=== PATIENT | male | born 1950 | race Caucasian/White ===

== ENCOUNTER → 2017-04-09 | Outpatient (CLI) | payer MEDICARE, MEDICAID ==
[~2017-04-09] MED LIST: ACID1GRA2 PO; ALLO100T30 PO; AMLO10TA2 PO; AMLO5TAB4 PO; ASPI-496 PO; CARV12.543 PO; CARV3.1212 PO; DICY20TA3 PO; DOCU-30 PO; ERGO500017 PO; FERR325T20 PO; FERR325T63 PO; FURO-93 PO; GABA300C10 PO; HYDR-3341 PO; HYDR-3342 PO; HYDR-3343 PO; HYDR25TA6 PO; IRBE150T49 PO; ISOS20TA58 PO; LOSA50TA2 PO; MAGN400T26 PO; Magnesium Oxide PO; OMEP-110 PO; ONDA4TAB13 PO; OXYC10TA32 PO; OXYC5TAB3 PO; PHOS250T3 PO; POLY17PO3 PO; POTA20TA14 PO; PRED5TAB PO; SIMV20TA PO; TRAM50TA2 PO
== END | disposition home or self-care (01) ==
LOC: PETCFH 08:58
PROVIDERS: ATTEND Internal Medicine
DX: C78.7 Secondary malignant neoplasm of liver and intrahepatic bile duct (principal); E04.1 Nontoxic single thyroid nodule
CPT/HCPCS: 78815; A9552

== ENCOUNTER 2017-05-19 14:12 | Inpatient (IN) | payer MEDICARE, MEDICAID ==
[~2017-05-19] VITALS: Ht 177.8 cm; Wt 85.7 kg
[~2017-05-19 14:12] MED LIST changes: +MAGN400T7 PO
[2017-05-19] MEDS ORDERED: ONDANSETRON 2MG/ML, 2ML IVPush ONE (15:00)
[2017-05-19] MEDS ORDERED: SODIUM CHLORIDE FLUSH 10ML SYR IVF ONE (15:00)
[2017-05-19] MEDS ORDERED: SODIUM CHLORIDE 0.9% 1,000ML IVBOLUS ONE (15:00)
[2017-05-19] MEDS ORDERED: PLEASE ENTER HEIGHT AND WEIGHT MC SCH (15:00)
[2017-05-19] MEDS: MORPHINE SULFATE 4 MG/ML, 1ML IVPush PRN ×2 (15:01→18:39)
[2017-05-19 15:05] LABS: ASPARTATE AMINO TRANSFERASE 47 U/L (15-37); BLOOD UREA NITROGEN 33 mg/dL (7-18)
[2017-05-19] MEDS ORDERED: ONDANSETRON 2MG/ML, 2ML IVPush PRN ×2 (15:30→20:00)
[2017-05-19] MEDS ORDERED: DIPHENHYDRAMINE 50 MG/ML, 1ML ONE (16:41)
[2017-05-19] MEDS ORDERED: METOCLOPRAMIDE 5 MG/ML, 2ML ONE (16:41)
[2017-05-19] MEDS ORDERED: DIPHENHYDRAMINE 50 MG/ML, 1ML IVPush ONE (17:00)
[2017-05-19] MEDS ORDERED: METOCLOPRAMIDE 5 MG/ML, 2ML IVPush ONE (17:00)
[2017-05-19] MEDS ORDERED: MORPHINE SULFATE 4 MG/ML, 1ML ONE (18:36)
[2017-05-19] MEDS ORDERED: MAALOX/HYOSCYAMINE/LIDOCAINE 45 ML BOTTLE ONE (19:11)
[2017-05-19] MEDS ORDERED: MAALOX/HYOSCYAMINE/LIDOCAINE 45 ML BOTTLE PO ONE (19:30)
[2017-05-19] MEDS ORDERED: SODIUM CHLORIDE FLUSH 10ML SYR IVF PRN (19:30)
[2017-05-19 20:00] VITALS: BP 158/93
[2017-05-19] MEDS ORDERED: ERGOCALCIFEROL 50,000 UNIT CAPSULE PO SCH (20:00)
[2017-05-19] MEDS ORDERED: ACETAMINOPHEN 325 MG TABLET PO PRN (20:00)
[2017-05-19] MEDS ORDERED: BISACODYL 10 MG SUPP PR PRN (20:00)
[2017-05-19] MEDS: SODIUM CHLORIDE 0.9% 1,000 ML IV SCH (20:17)
[2017-05-19] MEDS ORDERED: FUROSEMIDE 20 MG TABLET PO SCH (21:00)
[2017-05-19] MEDS ORDERED: FERROUS SULFATE 325 MG TABLET PO SCH (21:00)
[2017-05-19] MEDS: morphine SULFATE 10 MG/ML, 1ML IVPush PRN (23:03)
[2017-05-19] MEDS: MAGNESIUM OXIDE 400 MG TABLET PO SCH (23:03)
[2017-05-19] MEDS: ISOSORBIDE DINITRATE 20 MG TABLET PO SCH (23:04)
[2017-05-19] MEDS: DICYCLOMINE 20 MG TABLET PO SCH (23:04)
[2017-05-19] MEDS: HEPARIN 5,000 UNITS/ML, 1ML SQ SCH (23:05)
[2017-05-20 02:49] VITALS: BP 134/81
[2017-05-20] MEDS: SODIUM CHLORIDE 0.9% 1,000 ML IV SCH (05:31)
[2017-05-20] MEDS: morphine SULFATE 10 MG/ML, 1ML IVPush PRN (05:31)
[2017-05-20 06:06] LABS: ASPARTATE AMINO TRANSFERASE 40 U/L (15-37); BLOOD UREA NITROGEN 34 mg/dL (7-18)
[2017-05-20] MEDS: DICYCLOMINE 20 MG TABLET PO SCH ×4 (06:13→21:00)
[2017-05-20 07:32] VITALS: BP 130/85
[2017-05-20 07:52] LABS: ANISOCYTOSIS 1+; VERIFY COUNTS? YES
[2017-05-20 07:53] LABS: DIFF TOTAL CELLS COUNTED 50 CELL DIFFERENTIAL
[2017-05-20] MEDS: DOCUSATE 100 MG CAPSULE PO SCH ×2 (09:00→21:00)
[2017-05-20] MEDS ORDERED: POTASSIUM CHLORIDE 20 MEQ TAB.ER.PRT PO SCH (09:00)
[2017-05-20] MEDS ORDERED: TBO-FILGRASTIM 480 MCG/0.8 ML SQ ONE (09:00)
[2017-05-20] MEDS: POTASSIUM CHLORIDE 10 MEQ in D5%-0.45% NACL 1,000 ML IV SCH ×2 (09:17→20:56)
[2017-05-20] MEDS: AMLODIPINE 5 MG TABLET PO SCH (09:18)
[2017-05-20] MEDS: MAGNESIUM OXIDE 400 MG TABLET PO SCH ×3 (09:18→21:00)
[2017-05-20] MEDS: HEPARIN 5,000 UNITS/ML, 1ML SQ SCH ×3 (09:18→23:00)
[2017-05-20] MEDS: SENNA/DOCUSATE TABLET PO SCH (09:19)
[2017-05-20] MEDS: ISOSORBIDE DINITRATE 20 MG TABLET PO SCH ×3 (09:20→21:00)
[2017-05-20] MEDS: HYDROmorphone 2 MG/ML, 1ML IVPush PRN ×6 (10:10→23:46)
[2017-05-20] MEDS: CEFTRIAXONE PMX 1GM/50ML 50 ML IV SCH ×2 (10:25→20:47)
[2017-05-20 15:00] VITALS: BP 107/73
[2017-05-20] MEDS ORDERED: hydrALAzine 20 MG/ML, 1ML IV PRN (18:00)
[2017-05-20 20:19] VITALS: BP 103/72
[2017-05-21 02:59] VITALS: BP 83/60
[2017-05-21] MEDS: HYDROmorphone 2 MG/ML, 1ML IVPush PRN ×2 (03:03→06:33)
[2017-05-21 03:16] VITALS: BP 72/54
[2017-05-21 04:00] VITALS: BP 93/63
[2017-05-21 04:43] VITALS: BP 85/61
[2017-05-21 05:31] VITALS: BP 92/64
[2017-05-21 05:54] LABS: BLOOD UREA NITROGEN 61 mg/dL (7-18)
[2017-05-21] MEDS: DICYCLOMINE 20 MG TABLET PO SCH ×4 (06:00→21:37)
[2017-05-21] MEDS: HEPARIN 5,000 UNITS/ML, 1ML SQ SCH ×2 (07:00→16:19)
[2017-05-21 07:22] VITALS: BP 85/61
[2017-05-21 07:27] LABS: VERIFY COUNTS? YES
[2017-05-21 07:28] LABS: ANISOCYTOSIS 1+; DIFF TOTAL CELLS COUNTED 200 CELL DIFF
[2017-05-21 07:29] LABS: LARGE PLATELETS 1+
[2017-05-21] MEDS: ISOSORBIDE DINITRATE 20 MG TABLET PO SCH (09:00)
[2017-05-21] MEDS: TBO-FILGRASTIM 480 MCG/0.8 ML SQ SCH (09:00)
[2017-05-21] MEDS: CEFTRIAXONE PMX 1GM/50ML 50 ML IV SCH (09:26)
[2017-05-21] MEDS: MAGNESIUM OXIDE 400 MG TABLET PO SCH ×3 (09:30→21:38)
[2017-05-21] MEDS: AMLODIPINE 5 MG TABLET PO SCH (09:30)
[2017-05-21] MEDS: DOCUSATE 100 MG CAPSULE PO SCH (09:30)
[2017-05-21] MEDS: SENNA/DOCUSATE TABLET PO SCH (09:31)
[2017-05-21] MEDS ORDERED: PROPOFOL 10 MG/ML, 20ML ONE (11:54)
[2017-05-21] MEDS ORDERED: GLYCOPYRROLATE 0.2MG/1ML ONE (11:54)
[2017-05-21] MEDS ORDERED: NEOSTIGMINE 1 MG/ML, 10ML ONE (11:54)
[2017-05-21] MEDS ORDERED: PHENYLEPHRINE 10 MG/ML ONE (11:54)
[2017-05-21] MEDS ORDERED: ROCURONIUM 10 MG/ML ONE (11:54)
[2017-05-21] MEDS ORDERED: ONDANSETRON 2MG/ML, 2ML ONE (11:54)
[2017-05-21] MEDS ORDERED: SUCCINYLCHOLINE 20 MG/ML, 10ML ONE (11:54)
[2017-05-21] MEDS ORDERED: FENTANYL PF 250 MCG/5ML ONE (11:55)
[2017-05-21] MEDS ORDERED: MIDAZOLAM 1 MG/ML, 2ML ONE (11:55)
[2017-05-21] MEDS ORDERED: FENTANYL PF 100 MCG/2ML IV PRN (13:00)
[2017-05-21] MEDS ORDERED: ONDANSETRON 2MG/ML, 2ML IVPush PRN (13:00)
[2017-05-21] MEDS ORDERED: LABETALOL 5MG/ML, 20ML IV PRN (13:00)
[2017-05-21] MEDS ORDERED: PROMETHAZINE 25 MG/ML, 1ML IV PRN (13:00)
[2017-05-21] MEDS ORDERED: OXYcodone 5 MG/5 ML ORAL.SOL UDC PO PRN (13:00)
[2017-05-21] MEDS ORDERED: ACETAMINOPHEN 325 MG TABLET PO PRN (13:00)
[2017-05-21] MEDS ORDERED: EPHEDRINE 50 MG/ML, 1ML IVPush PRN (13:00)
[2017-05-21] MEDS ORDERED: METOPROLOL 1 MG/ML, 5ML IV PRN (13:00)
[2017-05-21] MEDS ORDERED: hydrALAzine 20 MG/ML, 1ML IV PRN (13:00)
[2017-05-21] MEDS ORDERED: ALBUTEROL SULFATE 2.5 MG/3 ML NPPB PRN (13:00)
[2017-05-21] MEDS ORDERED: VANCOMYCIN PER PHARMACY MC PRN (15:00)
[2017-05-21] MEDS ORDERED: MEROPENEM 1 GM in SODIUM CHLORIDE 0.9% 50 ML IV SCH (15:30)
[2017-05-21] MEDS: SODIUM CHLORIDE 0.9% 1,000 ML IV SCH ×2 (15:46→22:15)
[2017-05-21] MEDS: MEROPENEM 1 GM in SODIUM CHLORIDE 0.9% 100 ML IV SCH (15:46)
[2017-05-21] MEDS ORDERED: PHARMACOKINETIC MONITORING MC PRN (16:00)
[2017-05-21] MEDS ORDERED: PHARMACOKINETIC CONSULTATION MC ONE (16:00)
[2017-05-21] MEDS ORDERED: VANCOMYCIN 1,500 MG in SODIUM CHLORIDE 0.9% 250 ML IV ONE (16:30)
[2017-05-21 17:20] LABS: POTASSIUM,URINE RANDOM 37 mmol/L
[2017-05-21] MEDS ORDERED: PROPOFOL 100 ML IV PRN (18:10)
[2017-05-21] MEDS ORDERED: LIDOCAINE-MPF 1%, 2ML ENDO PRN (18:30)
[2017-05-21] MEDS ORDERED: FENTANYL PF 100 MCG/2ML IVPush PRN (18:30)
[2017-05-21] MEDS ORDERED: PHARMACY MAY ADJ FOR RENAL FX MC SCH (18:30)
[2017-05-21] MEDS: ALBUTEROL/IPRATROPIUM 2.5MG/0.5MG, 3 ML INLINE SCH ×2 (18:50→23:00)
[2017-05-21] MEDS: FAMOTIDINE 20 MG/2 ML IV SCH (20:14)
[2017-05-21] MEDS: HYDROmorphone 1 MG/ML, 1ML IV PRN (20:14)
[2017-05-21] MEDS ORDERED: DOCUSATE 100 MG CAPSULE PO SCH (21:00)
[2017-05-21] MEDS ORDERED: DOCUSATE 50 MG/5 ML, 10ML UDC PO SCH (23:00)
[2017-05-21] MEDS: NOREPINEPHRINE 4 MG in SODIUM CHLORIDE 0.9% 246 ML IV PRN (23:30)
[2017-05-22] MEDS: HEPARIN 5,000 UNITS/ML, 1ML SQ SCH ×3 (00:40→16:00)
[2017-05-22] MEDS: ALBUTEROL/IPRATROPIUM 2.5MG/0.5MG, 3 ML INLINE SCH ×6 (01:50→22:10)
[2017-05-22] MEDS: HYDROmorphone 1 MG/ML, 1ML IV PRN (03:00)
[2017-05-22] MEDS: MEROPENEM 1 GM in SODIUM CHLORIDE 0.9% 100 ML IV SCH ×2 (04:16→17:48)
[2017-05-22 04:38] LABS: ABG COLLECTION SITE LEFT RADIAL; COLLATERAL CIRCULATION TESTING NORMAL
[2017-05-22 04:54] LABS: BLOOD UREA NITROGEN 96 mg/dL (7-18)
[2017-05-22 05:13] LABS: ASPARTATE AMINO TRANSFERASE 66 U/L (15-37); TOTAL IRON BINDING CAPACITY 139 mcg/dL (250-450)
[2017-05-22] MEDS: SODIUM CHLORIDE 0.9% 1,000 ML IV SCH ×3 (05:16→20:43)
[2017-05-22 05:41] LABS: DIFF TOTAL CELLS COUNTED 100 CELL DIFF
[2017-05-22 05:53] LABS: VERIFY COUNTS? YES
[2017-05-22 05:56] LABS: ANISOCYTOSIS 1+
[2017-05-22 05:57] LABS: GIANT PLATELETS 1+; LARGE PLATELETS 1+
[2017-05-22] MEDS: NOREPINEPHRINE 4 MG in SODIUM CHLORIDE 0.9% 246 ML IV PRN ×4 (06:33→21:33)
[2017-05-22] MEDS: DICYCLOMINE 20 MG TABLET PO SCH ×4 (06:33→21:00)
[2017-05-22] MEDS: SENNA/DOCUSATE TABLET PO SCH (10:01)
[2017-05-22] MEDS: DOCUSATE 50 MG/5 ML, 10ML UDC PO SCH ×2 (10:02→21:01)
[2017-05-22] MEDS: FAMOTIDINE 20 MG/2 ML IV SCH (10:02)
[2017-05-22 10:29] LABS: HIT LOT CART23835/KIT23844
[2017-05-22] MEDS: MICAFUNGIN 100 MG in SODIUM CHLORIDE 0.9% 100 ML IV SCH (11:01)
[2017-05-22] MEDS: TBO-FILGRASTIM 480 MCG/0.8 ML SQ SCH (11:04)
[2017-05-22] MEDS ORDERED: VASOPRESSIN 100 UNIT in SODIUM CHLORIDE 0.9% 495 ML IV PRN (11:30)
[2017-05-22 11:49] LABS: HIT OBC PASS; HIT RESULT NEGATIVE (NEGATIVE)
[2017-05-22] MEDS ORDERED: FENTANYL PF 100 MCG/2ML ONE ×2 (13:00)
[2017-05-22] MEDS ORDERED: MIDAZOLAM 1 MG/ML, 5ML ONE ×2 (13:00)
[2017-05-22] MEDS ORDERED: LIDOCAINE 2%, 20ML ONE (13:17)
[2017-05-22] MEDS ORDERED: VANCOMYCIN 1,700 MG in SODIUM CHLORIDE 0.9% 250 ML IV ONE (17:00)
[2017-05-22] MEDS: HYDROmorphone 2 MG/ML, 1ML IVPush PRN (22:38)
[2017-05-23] MEDS: HEPARIN 5,000 UNITS/ML, 1ML SQ SCH
[2017-05-23] MEDS: ALBUTEROL/IPRATROPIUM 2.5MG/0.5MG, 3 ML INLINE SCH ×6 (01:55→23:00)
[2017-05-23] MEDS: SODIUM CHLORIDE 0.9% 1,000 ML IV SCH ×3 (03:04→18:56)
[2017-05-23] MEDS: MEROPENEM 1 GM in SODIUM CHLORIDE 0.9% 100 ML IV SCH (04:09)
[2017-05-23 04:35] LABS: ABG COLLECTION SITE RIGHT RADIAL; COLLATERAL CIRCULATION TESTING NORMAL
[2017-05-23 04:49] LABS: ASPARTATE AMINO TRANSFERASE 58 U/L (15-37)
[2017-05-23 04:52] LABS: BLOOD UREA NITROGEN 113 mg/dL (7-18)
[2017-05-23 05:10] LABS: DIFF TOTAL CELLS COUNTED 10 CELL DIFF; VERIFY COUNTS? YES
[2017-05-23 05:11] LABS: LARGE PLATELETS 1+; MICROCYTOSIS 1+
[2017-05-23] MEDS: DICYCLOMINE 20 MG TABLET PO SCH ×4 (06:00→20:42)
[2017-05-23] MEDS: HYDROmorphone 2 MG/ML, 1ML IVPush PRN ×4 (06:20→20:51)
[2017-05-23] MEDS: DOCUSATE 50 MG/5 ML, 10ML UDC PO SCH ×2 (09:00→20:42)
[2017-05-23] MEDS: SENNA/DOCUSATE TABLET PO SCH (09:00)
[2017-05-23] MEDS ORDERED: FAMOTIDINE 20 MG/2 ML IV SCH (09:00)
[2017-05-23] MEDS: MICAFUNGIN 100 MG in SODIUM CHLORIDE 0.9% 100 ML IV SCH (09:07)
[2017-05-23] MEDS: NOREPINEPHRINE 4 MG in SODIUM CHLORIDE 0.9% 246 ML IV PRN ×2 (09:36→17:14)
[2017-05-23] MEDS ORDERED: ALBUMIN HUMAN 25% 100 ML IV ONE (10:30)
[2017-05-23] MEDS ORDERED: AMIODARONE 150 MG in DEXTROSE 5% 100 ML IV ONE (10:30)
[2017-05-23] MEDS ORDERED: ALBUMIN HUMAN 25% 100 ML IV PRN (10:30)
[2017-05-23] MEDS ORDERED: FILTER 0.22 MICRON IV SCH (11:00)
[2017-05-23] MEDS: AMIODARONE 900 MG in DEXTROSE 5% 482 ML IV PRN (11:08)
[2017-05-23] MEDS: TBO-FILGRASTIM 480 MCG/0.8 ML SQ SCH (11:19)
[2017-05-23] MEDS: ALBUMIN HUMAN 25% 100 ML IV PRN (11:50)
[2017-05-23 14:15] LABS: HEP B SURF. AB < 3.1 mIU/mL (0.0-10.0)
[2017-05-23] MEDS: MEROPENEM 500 MG in SODIUM CHLORIDE 0.9% 100 ML IV SCH (15:34)
[2017-05-23] MEDS ORDERED: FENTANYL PF 2,500 MCG in SODIUM CHLORIDE 0.9% 200 ML IV PRN (20:00)
[2017-05-23] MEDS ORDERED: hydrALAzine 20 MG/ML, 1ML IV PRN (21:58)
[2017-05-24] MEDS: FENTANYL PF 2,500 MCG in SODIUM CHLORIDE 0.9% 200 ML IV PRN (00:22)
[2017-05-24] MEDS: SODIUM CHLORIDE 0.9% 1,000 ML IV SCH ×2 (01:42→09:20)
[2017-05-24] MEDS: ALBUTEROL/IPRATROPIUM 2.5MG/0.5MG, 3 ML INLINE SCH ×4 (02:22→14:50)
[2017-05-24] MEDS: NOREPINEPHRINE 4 MG in SODIUM CHLORIDE 0.9% 246 ML IV PRN ×4 (02:28→22:56)
[2017-05-24] MEDS: MEROPENEM 500 MG in SODIUM CHLORIDE 0.9% 100 ML IV SCH ×2 (04:17→16:11)
[2017-05-24 04:55] LABS: ABG COLLECTION SITE RIGHT RADIAL; COLLATERAL CIRCULATION TESTING NORMAL
[2017-05-24 04:56] LABS: BLOOD UREA NITROGEN 74 mg/dL (7-18)
[2017-05-24 05:00] LABS: ASPARTATE AMINO TRANSFERASE 52 U/L (15-37)
[2017-05-24 05:52] LABS: DIFF TOTAL CELLS COUNTED 25 CELL DIFFERENTIAL
[2017-05-24 05:57] LABS: VERIFY COUNTS? YES
[2017-05-24 05:58] LABS: ANISOCYTOSIS 1+
[2017-05-24 05:59] LABS: LARGE PLATELETS 1+
[2017-05-24] MEDS: DICYCLOMINE 20 MG TABLET PO SCH ×4 (06:24→21:00)
[2017-05-24] MEDS: SENNA/DOCUSATE TABLET PO SCH (08:56)
[2017-05-24] MEDS: AMIODARONE 900 MG in DEXTROSE 5% 482 ML IV PRN (09:19)
[2017-05-24] MEDS: MICAFUNGIN 100 MG in SODIUM CHLORIDE 0.9% 100 ML IV SCH (09:20)
[2017-05-24] MEDS: PANTOPRAZOLE 40 MG IV IVPush SCH (09:20)
[2017-05-24] MEDS ORDERED: TPN PER PHARMACY MC SCH (10:00)
[2017-05-24] MEDS: TBO-FILGRASTIM 480 MCG/0.8 ML SQ SCH (11:20)
[2017-05-24] MEDS: ALBUMIN HUMAN 25% 100 ML IV PRN ×2 (11:45→12:45)
[2017-05-24] MEDS ORDERED: ALBUMIN HUMAN 25% 100 ML IV PRN (14:30)
[2017-05-24] MEDS ORDERED: SODIUM CHLORIDE 0.9% 1,000 ML IV SCH (15:00)
[2017-05-24] MEDS ORDERED: FILTER, DISP 1.2 MICRON FOR TPN/PVN IV PRN (17:00)
[2017-05-24] MEDS ORDERED: DEXTROSE 10% 500 ML IV PRN (17:00)
[2017-05-24] MEDS ORDERED: DEXTROSE 50%, 50ML SYRINGE IVPush PRN (17:00)
[2017-05-24] MEDS ORDERED: FAT EMULSIONS IV SCH (17:00)
[2017-05-24] MEDS ORDERED: [UNRECOGNIZED DRUG - OTHER] IV SCH (17:00)
[2017-05-24] MEDS ORDERED: DEXTROSE 70% IV SCH (17:00)
[2017-05-24] MEDS ORDERED: AMINO ACID 10% IV SCH (17:00)
[2017-05-24] MEDS ORDERED: VANCOMYCIN 1,500 MG in SODIUM CHLORIDE 0.9% 250 ML IV ONE (17:00)
[2017-05-24] MEDS ORDERED: FENTANYL PF 2,500 MCG in SODIUM CHLORIDE 0.9% 200 ML IV PRN (20:00)
[2017-05-24] MEDS: ALBUTEROL/IPRATROPIUM 2.5MG/0.5MG, 3 ML NPPB SCH (20:30)
[2017-05-24] MEDS: INSULIN REGULAR MEDIUM DOSE Q6H X 48HRS SQ-INSULIN SCH (21:15)
[2017-05-25] MEDS: INSULIN REGULAR MEDIUM DOSE Q6H X 48HRS SQ-INSULIN SCH ×4 (04:06→20:49)
[2017-05-25] MEDS: MEROPENEM 500 MG in SODIUM CHLORIDE 0.9% 100 ML IV SCH ×2 (04:08→16:00)
[2017-05-25 04:25] LABS: ABG COLLECTION SITE RIGHT RADIAL; COLLATERAL CIRCULATION TESTING NORMAL
[2017-05-25 04:47] LABS: ASPARTATE AMINO TRANSFERASE 51 U/L (15-37); BLOOD UREA NITROGEN 57 mg/dL (7-18)
[2017-05-25] MEDS: DICYCLOMINE 20 MG TABLET PO SCH (06:00)
[2017-05-25] MEDS: ALBUTEROL/IPRATROPIUM 2.5MG/0.5MG, 3 ML NPPB SCH ×4 (06:45→19:20)
[2017-05-25 07:54] VITALS: BP 89/58
[2017-05-25] MEDS: PANTOPRAZOLE 40 MG IV IVPush SCH (07:59)
[2017-05-25 08:07] LABS: DIFF TOTAL CELLS COUNTED 25 CELL DIFFERENTIAL
[2017-05-25 08:09] LABS: ANISOCYTOSIS 1+; VERIFY COUNTS? YES
[2017-05-25 08:11] VITALS: BP 107/59
[2017-05-25] MEDS: SENNA/DOCUSATE TABLET PO SCH (08:31)
[2017-05-25] MEDS: TBO-FILGRASTIM 480 MCG/0.8 ML SQ SCH (08:33)
[2017-05-25] MEDS: NOREPINEPHRINE 4 MG in SODIUM CHLORIDE 0.9% 246 ML IV PRN (08:33)
[2017-05-25 08:36] VITALS: BP 81/48
[2017-05-25] MEDS: MICAFUNGIN 100 MG in SODIUM CHLORIDE 0.9% 100 ML IV SCH (09:32)
[2017-05-25] MEDS: FENTANYL PF 2,500 MCG in SODIUM CHLORIDE 0.9% 200 ML IV PRN (11:57)
[2017-05-25] MEDS: AMIODARONE 900 MG in DEXTROSE 5% 482 ML IV PRN (11:58)
[2017-05-25] MEDS: NOREPINEPHRINE 8 MG in SODIUM CHLORIDE 0.9% 242 ML IV PRN ×2 (11:58→21:54)
[2017-05-25] MEDS ORDERED: [UNRECOGNIZED DRUG - OTHER] IV SCH (17:00)
[2017-05-25] MEDS ORDERED: DEXTROSE 70% IV SCH (17:00)
[2017-05-25] MEDS ORDERED: FAT EMULSIONS IV SCH (17:00)
[2017-05-25] MEDS ORDERED: AMINO ACID 10% IV SCH (17:00)
[2017-05-25] MEDS ORDERED: MEROPENEM 500 MG in SODIUM CHLORIDE 0.9% 50 ML IV SCH (21:18)
[2017-05-26] MEDS ORDERED: MEROPENEM 500 MG in SODIUM CHLORIDE 0.9% 50 ML IV SCH (04:00)
[2017-05-26] MEDS: INSULIN REGULAR MEDIUM DOSE Q6H X 48HRS SQ-INSULIN SCH ×2 (04:32→09:00)
[2017-05-26 04:47] LABS: ABG COLLECTION SITE RIGHT RADIAL; COLLATERAL CIRCULATION TESTING NORMAL
[2017-05-26 05:42] LABS: BLOOD UREA NITROGEN 86 mg/dL (7-18)
[2017-05-26] MEDS: ALBUTEROL/IPRATROPIUM 2.5MG/0.5MG, 3 ML NPPB SCH ×3 (07:11→13:52)
[2017-05-26 07:14] LABS: ANISOCYTOSIS 1+; DIFF TOTAL CELLS COUNTED BUFFY COAT DIFF; VERIFY COUNTS? YES
[2017-05-26] MEDS: TBO-FILGRASTIM 480 MCG/0.8 ML SQ SCH (08:50)
[2017-05-26] MEDS: MICAFUNGIN 100 MG in SODIUM CHLORIDE 0.9% 100 ML IV SCH (09:02)
[2017-05-26] MEDS: PANTOPRAZOLE 40 MG IV IVPush SCH (09:02)
[2017-05-26] MEDS: NOREPINEPHRINE 8 MG in SODIUM CHLORIDE 0.9% 242 ML IV PRN (10:16)
[2017-05-26] MEDS ORDERED: AMIODARONE 150 MG in DEXTROSE 5% 100 ML IV ONE (10:30)
[2017-05-26] MEDS ORDERED: LORazepam 2 MG/ML, 1ML ONE (14:31)
[2017-05-26] MEDS: LORazepam 2 MG/ML, 1ML IV PRN ×2 (14:45→15:01)
[2017-05-26] MEDS ORDERED: FENTANYL PF 2,500 MCG in SODIUM CHLORIDE 0.9% 200 ML IV PRN (14:47)
[2017-05-26] MEDS ORDERED: ATROPINE OPHTH SOLN 1%, 2ML PO PRN (15:00)
[2017-05-26] MEDS ORDERED: LORazepam 10 MG in DEXTROSE 5% 245 ML IV SCH (15:00)
[2017-05-26] MEDS ORDERED: LORazepam 2 MG/ML, 1ML IV PRN (15:30)
[2017-05-26] MEDS ORDERED: LORazepam 2 MG/ML, 1ML IV ONE (15:30)
[2017-05-27] MEDS ORDERED: INSULIN REGULAR MEDIUM DOSE QDAY SQ-INSULIN SCH (09:00)
== END 2017-05-26 16:15 | disposition expired | DRG 853 ==
LOC: ED 15:15 → EDIP 19:14 → 3NE 19:59 → 3NW 05-20 11:49 → CCU 05-21 13:27
PROVIDERS: ADMIT Internal Medicine
PROC: 30233N1 Transfusion of Nonautologous Red Blood Cells into Peripheral Vein, Percutaneous Approach (ICD-10-PCS; principal; 2017-05-19)
PROC: 0D9M8ZZ Drainage of Descending Colon, Via Natural or Artificial Opening Endoscopic (ICD-10-PCS; 2017-05-21)
PROC: 0D7M8DZ Dilation of Descending Colon with Intraluminal Device, Via Natural or Artificial Opening Endoscopic (ICD-10-PCS; 2017-05-21)
PROC: 5A1945Z Respiratory Ventilation, 24-96 Consecutive Hours (ICD-10-PCS; 2017-05-21)
PROC: 0BH17EZ Insertion of Endotracheal Airway into Trachea, Via Natural or Artificial Opening (ICD-10-PCS; 2017-05-21)
PROC: 0T9330Z Drainage of Right Kidney Pelvis with Drainage Device, Percutaneous Approach (ICD-10-PCS; 2017-05-22)
PROC: 02HV33Z Insertion of Infusion Device into Superior Vena Cava, Percutaneous Approach (ICD-10-PCS; 2017-05-22)
PROC: B5181ZA Fluoroscopy of Superior Vena Cava using Low Osmolar Contrast, Guidance (ICD-10-PCS; 2017-05-22)
PROC: B548ZZA Ultrasonography of Superior Vena Cava, Guidance (ICD-10-PCS; 2017-05-22)
PROC: 5A1D60Z (ICD-10-PCS; 2017-05-24)
PROC: 30233R1 Transfusion of Nonautologous Platelets into Peripheral Vein, Percutaneous Approach (ICD-10-PCS; 2017-05-25)
DX: A41.9 Sepsis, unspecified organism (principal); N17.0 Acute kidney failure with tubular necrosis; I50.33 Acute on chronic diastolic (congestive) heart failure; E43 Unspecified severe protein-calorie malnutrition; J96.00 Acute respiratory failure, unspecified whether with hypoxia or hypercapnia; R65.21 Severe sepsis with septic shock; J18.9 Pneumonia, unspecified organism; T85.598A Other mechanical complication of other gastrointestinal prosthetic devices, implants and grafts, initial encounter; E87.2 Acidosis; C18.9 Malignant neoplasm of colon, unspecified; C78.00 Secondary malignant neoplasm of unspecified lung; C78.7 Secondary malignant neoplasm of liver and intrahepatic bile duct; I13.0 Hypertensive heart and chronic kidney disease with heart failure and stage 1 through stage 4 chronic kidney disease, or unspecified chronic kidney disease; K59.39 Other megacolon; N39.0 Urinary tract infection, site not specified; D61.818 Other pancytopenia; T83.192A Other mechanical complication of indwelling ureteral stent, initial encounter; N13.30 Unspecified hydronephrosis; Z68.27 Body mass index [BMI] 27.0-27.9, adult; E55.9 Vitamin D deficiency, unspecified; F12.90 Cannabis use, unspecified, uncomplicated; G62.9 Polyneuropathy, unspecified; I48.91 Unspecified atrial fibrillation; I87.2 Venous insufficiency (chronic) (peripheral); K80.20 Calculus of gallbladder without cholecystitis without obstruction; K82.8 Other specified diseases of gallbladder; M10.9 Gout, unspecified; N18.3 Chronic kidney disease, stage 3 (moderate); N27.0 Small kidney, unilateral; N28.1 Cyst of kidney, acquired; N32.89 Other specified disorders of bladder; N40.0 Benign prostatic hyperplasia without lower urinary tract symptoms; T45.1X5A Adverse effect of antineoplastic and immunosuppressive drugs, initial encounter; Z51.5 Encounter for palliative care; Z66 Do not resuscitate; Z80.1 Family history of malignant neoplasm of trachea, bronchus and lung; Z85.038 Personal history of other malignant neoplasm of large intestine; Z87.891 Personal history of nicotine dependence; Z99.2 Dependence on renal dialysis; D70.1 Agranulocytosis secondary to cancer chemotherapy; K21.9 Gastro-esophageal reflux disease without esophagitis; K44.9 Diaphragmatic hernia without obstruction or gangrene
CPT/HCPCS: 36415; 36556; 36600; 50432; 71010; 74000; 74020; 74176; 76000; 76770; 76937; 76942; 77001; 80048; 80053; 80202; 81001; 82150; 82330; 82436; 82533; 82607; 82728; 82746; 82803; 82962; 83036; 83540; 83550; 83605; 83690; 83735; 84100; 84133; 84134; 84300; 84478; 84550; 85025; 85384; 85610; 86022; 86704; 86706; 87040; 87070; 87081; 87086; 87205; 87340; 93005; 94002; 94003; 94640; 96374; 96375; 96376; J0610; J0696; J1170; J1644; J1815; J2185; J2248; J2250; J2405; J2704; J2710; J3010; J3370; J3480; J3490; J7620; P9047; C1729; C1751; C1769; C1874; C9113; J0282; J0330; J1200; J1447; J1642; J2060; J2270; J2370; J2765; J3420; J7030; J7050; J7060; P9035; S0028